=== PATIENT | male | born 1935 | race Caucasian/White ===

== ENCOUNTER 2016-07-21 10:39 | Outpatient (CLI) | payer MEDICARE, BC ==
[~2016-07-21] VITALS: Ht 188 cm; Wt 99.1 kg
--- NOTE | ~2016-07-21 | HEMODYNAMI ---
PATIENT:REESE HARRIS MEDICAL RECORD: [id number] : 37 LOCATION:DTeeCAT ADMISSION DATE: 07/21/16 Generatedon:07/21/201614:24 Patient name: REESE HARRIS Patient #: [id number] SSN: DO B: 1935 Date of study: 07/21/2016 Page: Of Hemodynamic Procedure Report Patient Data Patient Demographics Procedure consent was obtained First Name: REESE Gender: Male Last Name: STEVEN : 1935 Patient #: [id number] Age: 81 year(s) Race: Unknown Additional ID: [id number] Contact details Address: [address] [place] [address] State: [place] City: [place] Zip code: [address] Past Medical History Allergies: No known allergies Admission Admission Data Admission Date: 07/21/2016 Admission Time: 10:39 Insurance Payor: Medicare, Private health insurance Height (in.): 74 BSA: 2.25 (m2) Height (cm.): 187.96 BMI: 27.99 (kg/m2) Weight (lbs.): 218 Weight (kg.): 98.88 Lab Results Lab Result Date: 07/21/2016 Lab Result Time: 11:17 Biochemistry Name Units Result Min Max BUN mg/dl 11 --(-*--)-- 7 18 Creatinine mg/dl 1 --(--*-)-- 0.6 1.3 CBC Name Units Result Min Max Hematocrit % 32.1 *-(----)-- 42 54 Hemoglobin g/dl 10.6 *-(----)-- 13.5 17.5 Procedure Procedure Types Cath Procedure Diagnostic Procedure [facility] w/Coronaries Miscellaneous Procedures Moderate Sedation up to 45 minutes Peripheral Cath Diagnostic Procedure Cath Peripheral Chgnn-Fcgiipn-Jfd-Off Procedure Description Procedure Date Procedure Date: 07/21/2016 Procedure Start Time: 14:00 Procedure End Time: 14:23 Procedure Staff Name Function Blaine Cohn MD Performing Physician Dipesh Valencia RT Scrub Glendy Engle RN Nurse Anthony Lanza RT Monitor Procedure Data Cath Procedure Fluoroscopy Diagnostic fluoroscopy Total fluoroscopy Time: 4.7 time: 4.7 min min Diagnostic fluoroscopy Total fluoroscopy dose: dose: 1008 mGy 1008 mGy Contrast Material Contrast Material Type Amount (ml) Isovue 300 182 Entry Location Entry Primary Successful Side Size Upsize Upsize Entry Closure Succes sful Closure Location (Fr) 1 (Fr) 2 (Fr) Remarks Device Remarks Femoral Right 5 Fr Exoseal artery Estimated blood loss: 5 ml Diagnostic catheters Device Type Used For End Catheter Placement Cordis 5Fr JL 4.0 Procedure Catheter (MP) Diagnostic Infinity 5Fr Procedure AR 1 MOD catheter Diagnostic Infinity 5Fr Procedure IM catheter Cordis 5Fr Pigtail Procedure Catheter (MP) Procedure Complications No complications Procedure Medications Medication Administration Route Dosage Oxygen NC 2 l/min Heparin Flush Bag added to field 2 bags (1000units/500ml NS) Lidocaine 2% added to field 20 Versed I.V. 1 mg Fentanyl I.V. 50 mcg Versed I.V. 1 mg Fentanyl I.V. 50 mcg Versed I.V. 1 mg Fentanyl I.V. 50 mcg Versed I.V. 1 mg Fentanyl I.V. 50 mcg Hemodynamics Rest BSA: 2.25 (m2) HGB: 10.6 (g/dl) O2 Consumption: Estimated: 258.9 (ml/min) O2 Con sumption indexed: Estimated:115.07 (ml/min/m) Heart Rate: 72 (bpm) Pressure Samples Time Site Value (mmHg) Purpose Heart Use Rate(bpm) 14:14 LV 124/0,18 Snapshot 70 14:14 LV 94/-51,-18 Snapshot 71 14:15 AO 133/66(94) Pullback 73 14:15 LV 132/3,20 Pullback 73 Gradients Valve Time Site 1 Site 2 Mean SEP/DFP Peak To Heart Use (mmHg) (sec/min) Peak Rate (mmHg) (bpm) Aortic 14:15 LV AO 0 5 0 73 132/3,20 133/66(94) Calculations Valve P-P Mean Valve Index Valve Source Name Gradient Area Flow (cm2) Aortic 0 0 0 0 Snapshots Pre Cath Intra NCS Post Cath Vital Signs Time Heart Resp SPO2 NIBP (mmHg) Rhythm Pain Sedation Rate (ipm) (%) Status Level (bpm) 13:41:58 72 15 100 167/96(141) NSR 0 (11) 10(A) , No pain 13:46:14 62 28 100 169/87(132) NSR 0 (11) 10(A) , No pain 13:50:34 64 13 98 138/83(122) NSR 0 (11) 10(A) , No pain 13:54:48 64 16 96 132/79(109) NSR 0 (11) 10(A) , No pain 13:59:00 64 16 96 130/74(102) NSR 0 (11) 10(A) , No pain 14:03:12 66 21 97 126/77(109) NSR 0 (11) 10(A) , No pain 14:07:36 74 16 96 121/36(104) NSR 0 (11) 10(A) , No pain 14:11:46 72 15 97 129/78(101) NSR 0 (11) 10(A) , No pain 14:16:00 73 17 96 126/71(106) NSR 0 (11) 10(A) , No pain 14:20:12 70 22 96 123/73(104) NSR 0 (11) 10(A) , No pain Medications Time Medication Route Dose Verified Delivered Reason Notes Effec tiveness by by 13:42:40 Oxygen NC 2 Blaine Glendy Per l/min Lalit Engle RN physician 13:42:48 Heparin Flush added 2 Blaine Blaine used for Bag to bags Lalit Cohn MD procedure (1000units/500ml field NS) 13:43:00 Lidocaine 2% added 20ml Blaine Blaine used for to vial Lalit Cohn MD procedure field 13:49:57 Versed I.V. 1 mg Blaine Glendy for Lalit Engle RN sedation 13:50:02 Fentanyl I.V. 50 Blaine Glendy for mcg Lalit Engle RN sedation 13:53:06 Versed I.V. 1 mg Blaine Glendy for Lalit Engle RN sedation 13:53:08 Fentanyl I.V. 50 Blaine Glendy for mcg Lalit Engle RN sedation 13:57:15 Versed I.V. 1 mg Blaine Glendy for Cohn MD [place] RN sedation 13:57:18 Fentanyl I.V. 50 Blaine Glendy for mcg Lalit Engle RN sedation 14:02:01 Versed I.V. 1 mg Blaine Glendy for Lalit Engle RN sedation 14:02:11 Fentanyl I.V. 50 Blaine Glendy for mcg Lalit Engle RN sedation Procedure Log Time Note 13:25:37 ACC Patient presents with Stable Angina CCS Anginal Class 2--Slight limitation of ordinary activity. 13:25:39 Diagnostic Cath status Elective 13:25:41 Dipesh Valencia RT(R) sent for patient. Start room use. 13:25:49 Time tracking: Regular hours 13:25:54 Plan of Care:Hemodynamics will remain stable., Cardiac rhythm will remain stable., Comfort level will be maintained., Respiratory function will remain adequate., Patient/ family verbilizes understanding of procedure., Procedure tolerated without complication., Recovers from procedure without complications.. 13:37:13 H&P Date Dictated: 07/20/2016 Within 30 days and on chart., H&P Addendum completed by physician on day of procedure. (MUST COMPLETE FOR ALL OUTPATIENTS). 13:37:16 Pre-procedure instructions explained to patient. 13:37:18 Family in waiting room. 13:37:20 Patient NPO since Midnight. 13:38:06 Patient allergic to No known allergies 13:38:18 Patient arrived from Outpatients to CCL 2. Patient remains on bed/stretcher for procedure. 13:38:19 Warm blankets applied, and connie hugger turned on for patient comfort. 13:38:20 Correct patient and procedure confirmed by team. 13:38:22 Signed procedure consent form obtained from patient. 13:38:24 ECG and BP/O2 sat monitors applied to patient. 13:39:03 Snore? Yes 13:39:04 Sleep apnea? No 13:39:20 Airway obstruction? No ? 13:39:29 Dentures? Yes tight 13:39:35 Is patient on blood thinner?No 13:39:39 Patient diabetic? No. 13:39:44 Patient pain scale 0/10 ?. 13:39:54 IV patent on arrival in left forearm with 0.9% NaCl at [facility]. 13:40:43 Physician paged 13:40:47 Vital chart was started 13:41:47 Baseline sample Acquired. 13:41:52 Rhythm: sinus rhythm 13:41:55 Full Disclosure recording started 13:42:40 Oxygen 2 l/min NC was given by Glendy Engle RN; Per physician; 13:42:48 Heparin Flush Bag (1000units/500ml NS) 2 bags added to field was given by Blaine Cohn MD; used for procedure; 13:43:00 Lidocaine 2% 20ml vial added to field was given by Blaine Cohn MD; used for procedure; 13:45:01 Baseline sample Acquired. 13:47:11 Lab Result : BUN 11 mg/dl 13:47:11 Lab Result : Creatinine 1 mg/dl 13:47:11 Lab Result : Hemoglobin 10.6 g/dl 13:47:11 Lab Result : Hematocrit 32.1 % 13:47:15 Lab results completed and on chart. 13:47:17 Bilateral groins area was prepped with chlora-prep and draped in sterile fashion 13:47:19 Alarms reviewed by R. N. 13:47:20 Sharps counted by scrub and verified by R.N. 13:47:22 Use device set Femoral Dx 13:47:27 Tegaderm 4 x 4 opened to sterile field. 13:47:27 Acist Manifold opened to sterile field. 13:47:28 Acist Hand Control opened to sterile field. 13:47:29 Acist Syringe opened to sterile field. 13:47:30 Bag Decanter opened to sterile field. 13:47:30 Medline Cath Pack opened to sterile field. 13:47:31 Terumo 5Fr [place] Sheath opened to sterile field. 13:47:31 St Fracnk 260cm J .035 wire opened to sterile field. 13:47:33 Diagnostic Infinity 5Fr Multipack catheter opened to sterile field. 13:47:40 --------ALL STOP TIME OUT------ 13:47:40 Final Timeout: patient, procedure, and site verified with staff and physician. All members of the team are in agreement. 13:47:42 Bilateral groins site verified by team. 13:47:44 Physical assessment completed. ASA score P 2 - A patient with mild systemic disease as per Blaine Cohn MD. 13:47:47 Sedation plan: IV Moderate Sedation Versed, Fentanyl 13:49:57 Versed 1 mg I.V. was given by Glendy Engle RN; for sedation; 13:50:02 Fentanyl 50 mcg I.V. was given by Glendy Engle RN; for sedation; 13:51:43 Patient Height : 187.96 inches 13:51:49 Patient Weight : 98.88 lbs 13:52:08 Insurance Payor : Private health insurance, Medicare 13:53:06 Versed 1 mg I.V. was given by Glendy Engle RN; for sedation; 13:53:08 Fentanyl 50 mcg I.V. was given by Glendy Engle RN; for sedation; 13:55:49 Zero performed for pressure channel P1 13:57:15 Versed 1 mg I.V. was given by Glendy Engle RN; for sedation; 13:57:18 Fentanyl 50 mcg I.V. was given by Glendy Engle RN; for sedation; 14:00:15 Procedure started. 14:00:22 Local anesthetic to right femoral artery with Lidocaine 2% by Blaine Cohn MD.INITIAL ACCESS ONLY 14:02:01 Versed 1 mg I.V. was given by Glendy Engle RN; for sedation; 14:02:11 Fentanyl 50 mcg I.V. was given by Glendy Engle RN; for sedation; 14:03:07 A 5 Fr sheath was inserted into the Right Femoral artery 14:04:22 A Cordis 5Fr JL 4.0 Catheter (MP) was advanced over the wire and used for Procedure. 14:04:44 LCA angiography performed. 14:05:17 Catheter removed. 14:06:20 A Diagnostic Infinity 5Fr AR 1 MOD catheter was advanced over the wire and used for Procedure. 14:08:01 RCA angiography performed. 14:09:15 Catheter removed. 14:09:26 A Diagnostic Infinity 5Fr IM catheter was advanced over the wire and used for Procedure. 14:10:26 RUTH to LAD angiography performed. 14:11:21 [facility] 260CM glide wire opened to sterile field. 14:12:33 Catheter removed. 14:12:43 A Cordis 5Fr Pigtail Catheter (MP) was advanced over the wire and used for Procedure. 14:14:41 LV gram done using HUSAIN 14:14:43 Injector settings: Ml/sec: 10, Volume: 20, 14:14:48 EF : 50 % 14:15:23 Abdominal angiogram w/ runoff was performed. 14:16:38 Right leg runoff performed. 14:16:45 Left leg runoff performed. 14:17:32 Catheter removed. 14:19:02 Sheath removed intact; hemostasis achieved with Exoseal to the Right Femoral artery. 14:19:04 Procedure ended.(Physican Out) 14:19:19 Fluoroscopy time 04.70 minutes. 14:19:24 Fluoroscopy dose: 1008 mGy 14:19:24 Flurop Dose total: 1008 14:19:51 Contrast amount:Isovue 300 182ml. 14:21:28 Insertion/operative site no bleeding no hematoma. 14:21:32 Post-op/insertion site Right Femoral artery dressed using a 4 x 4 and Tegaderm. 14:21:40 Post right femoral artery:stable, soft, clean and dry 14:22:12 Post Procedure Pulses reassessed and unchanged 14:22:15 Post-procedure physical assessment completed. ASA score P 2 - A patient with mild systemic disease as per Blaine Cohn MD. 14:22:18 Post procedure rhythm: unchanged. 14:22:20 Estimated blood loss: 5 ml 14:22:22 Post procedure instruction explained to patient.Patient verbalizes understanding. 14:22:22 Patient needs reinforcement of post procedure teaching. 14:23:18 Procedure type changed to Cath procedure, Diagnostic procedure, LHC, LHC w/Coronaries, Miscellaneous Procedures, Moderate Sedation up to 45 minutes, Peripheral Cath Diagnostic Procedure, Cath Peripheral, Qkjep-Dvfikfs-Rlu-Off 14:23:41 Procedure and supply charges have been captured, reviewed, submitted and are correct. 14:23:43 Procedure Complication : No complications 14:23:46 Vital chart was stopped 14:23:47 See physician's report for complete and final results. 14:23:48 Report given to Pre/Post Procedure Room. 14:23:51 Patient transfered to Pre/Post Procedure Room with Stretcher. 14:23:53 Procedure ended. 14:23:53 Full Disclosure recording stopped 14:23:59 End room use (Document Last) Device Usage Item Name Manufacture Quantity Catalog Hospital Part Current Minimal Lo t# / Number Charge Number Stock Stock Serial# Code Tegaderm 4 1 1626 [id number] [id number] [id number] 5 x 4 Acist Acist 1 74890 025239 978124 909456 5 Manifold [employer] Inc Acist Hand Acist 1 00107 407942 186985 611552 5 Control [employer] Inc Acist Acist 1 17175 929873 057134 538944 20 Syringe [employer] Inc Bag Microtek 1 2002S 582588 85899 244419 5 [employer] Medline Cardinal 1 [id number] 331923 41282 215371 5 Cath Pack Health Terumo 5Fr Terumo 1 [id number] 617550 413487 057335 [address] [facility] Franck 1 485280 168841 185691 173416 30 260cm J .035 wire Diagnostic Cardinal 1 II3823 409315 06075 120091 30 Infinity Health 5Fr Multipack catheter Cordis 5Fr Cardinal 1 633356 5 JL 4.0 Health Catheter (MP) Diagnostic Cardinal 1 [id number] 157828 085350 389874 15 Infinity Health 5Fr AR 1 MOD catheter Diagnostic Cardinal 1 [id number] 844709 550076 483453 5 Infinity Health 5Fr IM catheter Cook [facility] 1 [id number] 595363 020399 [address] FIRM 260CM glide wire Cordis 5Fr Cardinal 1 [id number] 5 Pigtail Health Catheter (MP) Signature Audit [place] Stage Time Signature Unsigned Intra-Procedure 07/21/2016 Anthony Lanza 2:24:15 PM RT(R) Signatures Monitor : Anthony Lanza RT Signature : Date : Time : [facility] [address] [place] [address]
[2016-07-21] MEDS ORDERED: ADVIL200 MG PO (10:59)
[2016-07-21] MEDS ORDERED: TENORMIN25 MG PO (10:59)
[2016-07-21] MEDS ORDERED: BAYER CHEWABLE81 MG PO (11:00)
[2016-07-21] MEDS ORDERED: MEGACE 20 MG TA20 MG PO (11:01)
[2016-07-21] MEDS ORDERED: LIPITOR80 MG PO (11:03)
[2016-07-21] MEDS ORDERED: NEURONTIN 300300 MG PO (11:03)
[2016-07-21 11:04] VITALS: BP 153/84; Ht 188 cm; Wt 99.1 kg
[2016-07-21 11:33] LABS: BASOPHILS 0.4 % (0.0-2.0); EOSINOPHILS 2.7 % (0-7); HEMATOCRIT 32.1 % (42.0-54.0); HEMOGLOBIN 10.6 g/dL (13.5-17.5); IMMATURE GRANULOCYTES 0.4 % (0-5); LYMPHOCYTES 22.1 % (15-50); MCH 30.6 pg (26.0-34.0); MCV 92.8 fL (80.0-100.0); MEAN PLATELET VOLUME 10.9 fL (7.4-10.4); MONOCYTES 7.2 % (2-11); NEUTROPHILS 67.2 % (40-80); PLATELET COUNT 165 10x3/uL (130-400); RBC 3.46 10x6/uL (4.20-6.10); WBC 5.1 10x3/uL (4.8-10.8)
[2016-07-21 11:46] LABS: CALC OSMOLALITY 281 mosm/kg (275-300); CALCIUM 8.5 mg/dL (8.5-10.1); CARBON DIOXIDE 24.5 mmol/L (21.0-32.0); CHLORIDE - SERUM 106 mmol/L (98-107); GLUCOSE 94 mg/dL (74-106); POTASSIUM - SERUM 4.1 mmol/L (3.5-5.1); SODIUM 142 mmol/L (136-145); UREA NITROGEN 11 mg/dL (7-18); eGFR NON AFRICAN AMERICAN 76 mL/min (90-120)
--- NOTE | 2016-07-21 16:44 | NUR ---
1555 LYING FLAT, NC 2L IN PLACE WHILE SLEEPING. VITALS ALL WNL. R GROIN 5F EXOSEAL C/D/I WITH NO HEMATOMA OR BLEEDING. FAMILY AT BEDSIDE. 1630 R GROIN REMAINS C/D/I WITH NO HEMATOMA OR BLEEDING. NC REMOVED. ALL VITALS WNL. PULSES PALP X 4. NO C/O CHST PAIN. 1645 UP TO BEDSIDE TO VOID USING URINAL. VOIDED 300CC YELLOW URINE.
--- NOTE | 2016-07-21 16:48 | NUR ---
PIV REMOVED FROM LEFT HAND WITH BANDAID APPLIED.
--- NOTE | 2016-07-21 17:12 | NUR ---
1700-WRITTEN AND VERBAL INSTRUCTIONS GIVEN AND UNDERSTOOD. D'C HOME WITH FRIEND VIA PRIVATE CAR. DENIES TYREE NEEDS
--- NOTE | 2016-08-05 08:17 | OP ---
PATIENT NAME: REESE HARRIS MEDICAL RECORD: [id number] :37 LOCATION:D.CAT ADMISSION DATE: SURGEON: YAYA SIMON M.D. DATE OF OPERATION: 07/21/2016 PROCEDURES PERFORMED: 1. Selective coronary angiography. 2. Left heart catheterization with ventriculogram. 3. Left internal mammary injection. 4. Aortofemoral runoff INDICATION: An 81-year-old gentleman presents with recurrent angina. He has been having lifestyle limiting claudication as well. His recent stress test revealed ischemia. EQUIPMENT USED: A 5-Cypriot JL4, Adebayo right, internal mammary catheter, pigtail catheter. TECHNIQUE: A 5-Cypriot sheath was inserted in a retrograde fashion in the right common femoral artery. Next, selective coronary angiography was performed in standard 5-Cypriot JL4 and Adebayo right. Left internal mammary was selected with internal mammary catheter. Left heart catheterization performed using pigtail catheter. Next, the pigtail catheter was pulled down to the level of T12. Power injection was performed to visualize the distal aorta. Next, the cath was pulled down to the level of bifurcation. A power injection then performed to visualize the left and right lower extremities. CORONARY ANATOMY: 1. Left main: Left main trunk is moderate in caliber. It gives rise to the LAD and circumflex. It has mild irregularities. 2. LAD: This vessel has 100% occluded after first diagonal branch. The first diagonal branch has mild irregularities, but nothing worse than 20%. 3. Circumflex: This vessel is moderate in caliber. It supplies the lateral branch in distal segment. This vessel has mild irregularities, but nothing worse than 20%. 4. Right coronary: This vessel is quite large and dominant. It supplies the PDA and posterolateral branch in distal segment. This vessel has mild irregularities, but nothing worse than 30%. 5. Left internal mammary artery to LAD: This graft is widely patent throughout its course. Beyond anastomosis, the vessel have good caliber and has no significant obstruction. 6. Left ventricle: Left ventricle is normal in size. Estimated ejection fraction is lower limits of normal around 50%. AORTOFEMORAL RUNOFF: The distal aorta is of good caliber. Each kidney receives a single arterial supply. There is no evidence of renal artery stenosis. The distal aorta demonstrates no obstruction. Right common iliac artery is large in caliber and widely patent. The right common femoral artery is large in caliber and widely patent. Right superficial artery is calcified, has mild irregularities, but nothing worse than 20%. Right popliteal is large in caliber. Again, it has mild irregularities, but nothing worse than 20%. Below the knee, there appears to be 3-vessel runoff. Left common occurs large in caliber and widely patent. Left common femoral OPERATIVE REPORT [id number] REESE HARRIS artery is large in caliber and widely patent. Left superficial artery is mildly calcified, but again has mild irregularities, but nothing worse than 20%. Left popliteal artery is large in caliber and has mild irregularities, but nothing worse than 30%. It appears to have 2-3-vessel runoff below the knee, but somewhat ____ artificial knee. IMPRESSION: 1. A patent bypass graft to the LAD. Main 2 coronary arteries are not grafted but have no obstruction. 2. Aortofemoral runoff reveals mild disease, but no significant stenosis. RECOMMENDATIONS: I Suspect his pain in his legs may be from his lower back. He does not have any evidence of any significant peripheral vascular disease. I suspect his stress test may be a false positive as all areas appear to be revascularized. TRANSINT:[id number] Voice Confirmation ID: [id number] DOCUMENT ID: [id number] YAYA SIMON M.D. at 0817 CC: [id number] DICTATION DATE: 07/21/16 1429 FAMILY SERVICES ASSISTANT: 07/21/16 2232 DEP CLI 07/21/16 [address] [place] [address]
== END 2016-07-21 17:05 | disposition home or self-care (01) ==
LOC: D.CATH 10:39
PROVIDERS: Internal Medicine Cardiovascular Disease
DX: R94.39 Abnormal result of other cardiovascular function study (principal); M79.605 Pain in left leg; M79.604 Pain in right leg; I25.10 Atherosclerotic heart disease of native coronary artery without angina pectoris; Z95.1 Presence of aortocoronary bypass graft

== ENCOUNTER → 2016-08-27 09:19 | Outpatient (CLI) | payer MEDICARE, BC ==
[2016-07-21 11:04] VITALS: BMI 28.0
[~2016-08-27 09:19] MED LIST: ADVIL200 MG PO; BAYER CHEWABLE81 MG PO; LIPITOR80 MG PO; MEGACE 20 MG TA20 MG PO; NEURONTIN 300300 MG PO; TENORMIN25 MG PO
== END | disposition home or self-care (01) ==
LOC: D.CT 09:19
DX: M79.606 Pain in leg, unspecified (principal)

== ENCOUNTER → 2017-08-19 09:11 | Outpatient (CLI) | payer MEDICARE, BC ==
[2016-07-21 11:04] VITALS: BMI 28.0
[~2017-08-19 09:11] MED LIST changes: +CARAFATE1 G/10 ML PO; +COLACE100 MG PO; +FLAGYL500 MG PO; +FUROSEMIDE20 MG PO; +HYDROCODON-ACE1 EAC7 PO; +KLOR-CON 1010 MEQ PO; +MIRALAX17 GM PO; +PROTONIX40 MG PO
== END | disposition home or self-care (01) ==
LOC: D.RAD 09:11
DX: K59.00 Constipation, unspecified (principal)

== ENCOUNTER 2017-08-24 15:48 | Inpatient (IN) | payer MEDICARE, BC ==
[~2017-08-24] VITALS: Ht 188 cm; Wt 110.0 kg
--- NOTE | ~2017-08-24 | HP ---
PATIENT: REESE HARRIS MEDICAL RECORD: [id number] ACCOUNT: [id number] LOCATION:[address] : 37 ADMISSION DATE: 08/24/17 HISTORY AND PHYSICAL EXAMINATION DIAGNOSES: 1. Unstable angina. 2. Coronary artery disease. 3. Previous coronary bypass graft surgery 2 vessels in 1985. 4. Hypertension. 5. Hyperlipidemia. HISTORY OF PRESENT ILLNESS: Mr. Harris has a distant history of coronary artery disease, bypass surgery in 1985. He underwent cardiac catheterization last year and he was told he had patent vessels. No new blockages. He has had chest pain all day today. His EKG has a right bundle-branch block, but T-wave inversions anteriorly. He continues to have the chest pain. REVIEW OF SYSTEMS: The patient reports easy bruising but reports no swollen glands. The patient reports no fever, no night sweats, no significant weight gain, no significant weight loss. No significant exercise tolerance. The patient reports no dry eyes, no irritation, no vision change. Patient reports no difficulty hearing and no ear pain. Patient reports no frequent nose bleeds or nose and sinus problems. Patient reports on arm pain on exertion. No shortness of breath while lying down. No history of heart murmur. Patient reports no cough, no wheezing or coughing up blood. Patient reports no abdominal pain, no vomiting. Normal appetite. No diarrhea and not vomiting blood. No nausea and no constipation. Patient reports no incontinence. No difficulty urinating. No hematuria. No increased frequency. Patient reports no muscle aches. No weakness, no arthralgias, no back pain. No swelling of the extremities. Patient reports no abnormal mole, no jaundice, no rashes. Reports no loss of consciousness. No weakness and no numbness. No seizures, dizziness, or headaches. The patient reports no depression, no sleep disturbance, feeling safe in a relationship and no alcohol abuse. Patient reports on fatigue. Reports no runny nose or sinus pressure. No itching, no hives, and no frequent sneezing. PHYSICAL EXAMINATION: GENERAL APPEARANCE: Well-nourished, well-developed, appears stated age. Level of distress, comfortable. PSYCHIATRIC: Mental status, alert, normal affect. Orientation, oriented to time, place and person. EYES: Lids and conjunctiva, noninjected. No discharge, no pallor. ENT: Lips, teeth, gums, normal dentition. Oropharynx, no cyanosis, no pallor. NECK: Carotid arteries, bilateral normal upstroke, no bruits, no thrills. JUGULAR VEINS: No jugular venous pressure or distention. CERVICAL LYMPH NODES: Nontender, nonenlarged. THYROID: Not enlarged. Nontender. No nodules. LUNGS: Respiratory effort, unlabored. CHEST: Normal curvature. No thoracic deformity. No chest wall tenderness. Percussion, resonant. Auscultation, clear. No wheezes, no rales, no rhonchi. CARDIOVASCULAR: Precordial exam, nondisplaced. No heaves or pericardial thrills. Rate and rhythm, regular. Heart sounds, normal S1, normal S2. No S3, no gallop, no rub. Systolic murmur, not heard. Diastolic murmur, not heard. EXTREMITIES: No cyanosis, no edema. Peripheral pulses, full and equal in all HISTORY AND PHYSICAL [id number] REESE HARRIS extremities, except as noted. No bruits appreciated. ABDOMEN: Soft, nondistended. Normal aorta. No bruit. Nontender. No masses. Liver, nontender, no hepatomegaly. Spleen, nontender, no splenomegaly. MUSCULOSKELETAL: No joint tenderness. No joint swelling. No erythema. NEUROLOGICAL: Normal gait, normal strength, normal tone. SKIN: Warm and dry. OVERALL IMPRESSION: Chest pain compatible with angina, unstable fashion, most likely he has hemodynamically significant coronary artery disease. We will proceed with coronary angiography. Further care depends upon the findings of the angiography. TRANSINT:[id number] Voice Confirmation ID: [id number] DOCUMENT ID: [id number] ROBINA FARAH MD at 1056 CC: [id number] DICTATION DATE: 08/24/17 1642 DOOR ASSEMBLER: 08/24/17 1825 ADM IN [id number] [place] [address]
[~2017-08-24 15:48] MED LIST changes: -CARAFATE1 G/10 ML PO; -COLACE100 MG PO; -FLAGYL500 MG PO; -FUROSEMIDE20 MG PO; -HYDROCODON-ACE1 EAC7 PO; -KLOR-CON 1010 MEQ PO; -MIRALAX17 GM PO; -PROTONIX40 MG PO
[2017-08-24 16:29] LABS: MCH 29.4 pg (26.0-34.0); MCHC 31.6 g/dL (31.0-37.0); WBC 17.2 10x3/uL (4.8-10.8)
[2017-08-24 16:45] LABS: ALBUMIN 3.3 g/dL (3.4-5.0); ALKALINE PHOSPHATASE 44 U/L (46-116); ALT (SGPT) 17 U/L (10-68); BILIRUBIN - TOTAL 0.29 mg/dL (0.2-1.3); CALC OSMOLALITY 272 mosm/kg (275-300); CALCIUM 8.5 mg/dL (8.5-10.1); CARBON DIOXIDE 25.4 mmol/L (21.0-32.0); CHLORIDE - SERUM 100 mmol/L (98-107); GLUCOSE 99 mg/dL (74-106); PROTEIN - SERUM 7.7 g/dL (6.4-8.2); SODIUM 136 mmol/L (136-145); UREA NITROGEN 16 mg/dL (7-18); eGFR NON AFRICAN AMERICAN 76 mL/min (90-120)
[2017-08-24 16:56] LABS: CHOL - HDL RATIO 4.6 ratio (2.3-4.9); CHOLESTEROL, TOTAL 132 mg/dL (0-200); CKMB 1.6 U/L (0.0-3.6); CREATINE KINASE 105 UL (21-232); HDL CHOLESTEROL 29 mg/dL (32-96); LDL CHOLESTEROL 81 mg/dL (0-100); LDL-HDL RATIO 2.8 ratio (1.5-3.5); TRIGLYCERIDE 110 mg/dL (30-200); TROPONIN-I 0.034 ng/mL (0.000-0.060)
[2017-08-24 17:34] LABS: RBC 1.87 10x6/uL (4.20-6.10)
[2017-08-24 17:35] LABS: HEMATOCRIT 17.4 % (42.0-54.0); HEMOGLOBIN 5.5 g/dL (13.5-17.5); PLATELET COUNT 13 10x3/uL (130-400)
[2017-08-24 17:54] LABS: APTT 34.3 SECONDS (22.8-39.4); INR 1.19 (0.85-1.17); PROTIME 14.6 SECONDS (11.6-15.0)
[2017-08-24 18:40] LABS: LYMPHOCYTES 93 % (15-50); MONOCYTES 5 % (2-11); NEUTROPHILS 2 % (40-80); PLATELET ESTIMATE DECREASED
[2017-08-24 19:00] VITALS: BP 142/74
[2017-08-24 19:43] LABS: % SATURATION 53 % (15-55); IRON 115 ug/dl (35-150); TOTAL IRON BIND CAPACITY 216 ug/dl (260-445); UNSAT IRON BIND CAPACITY 101 ug/dl (150-375)
[2017-08-24 23:39] LABS: APPEARANCE CLEAR (CLEAR); BILIRUBIN NEGATIVE (NEGATIVE); COLOR YELLOW (YELLOW); GLUCOSE NEGATIVE (NEGATIVE); KETONE NEGATIVE (NEGATIVE); NITRITE NEGATIVE (NEGATIVE); PROTEIN NEGATIVE (NEGATIVE); UROBILINOGEN NORMAL (NORMAL)
[2017-08-24 23:40] LABS: WHITE CELLS - URINE 0-5 /hpf (0-5)
[2017-08-24 23:41] LABS: BACTERIA FEW /hpf (NONE SEEN); EPITHELIAL CELLS 0-5 /hpf (0-5); RED CELLS - URINE 0-5 /hpf (0-5)
[2017-08-25] VITALS: BP 122/69
[2017-08-25] MEDS ORDERED: FUROSEMIDE20 MG PO (00:28)
[2017-08-25] MEDS ORDERED: KLOR-CON 1010 MEQ PO (00:29)
[2017-08-25 01:35] LABS: CKMB 0.9 U/L (0.0-3.6); CREATINE KINASE 82 UL (21-232)
[2017-08-25 04:00] VITALS: BP 129/72
[2017-08-25 08:04] VITALS: BP 132/74
[2017-08-25 08:17] LABS: CALC OSMOLALITY 269 mosm/kg (275-300); CARBON DIOXIDE 23.5 mmol/L (21.0-32.0); CHLORIDE - SERUM 98 mmol/L (98-107); CREATINE KINASE 132 UL (21-232); CREATININE - SERUM 0.8 mg/dL (0.6-1.3); FERRITIN 828 ng/mL (3-244); GLUCOSE 107 mg/dL (74-106); POTASSIUM - SERUM 4.4 mmol/L (3.5-5.1); SODIUM 135 mmol/L (136-145); TROPONIN-I 0.035 ng/mL (0.000-0.060); UREA NITROGEN 13 mg/dL (7-18); eGFR NON AFRICAN AMERICAN > 90 mL/min (90-120)
[2017-08-25 08:19] LABS: HEMATOCRIT 26.5 % (42.0-54.0); HEMOGLOBIN 8.6 g/dL (13.5-17.5); MCH 28.9 pg (26.0-34.0); MCHC 32.5 g/dL (31.0-37.0); MCV 88.9 fL (80.0-100.0); RBC 2.98 10x6/uL (4.20-6.10); WBC 13.3 10x3/uL (4.8-10.8)
[2017-08-25 08:21] LABS: PLATELET COUNT 31 10x3/uL (130-400)
[2017-08-25 08:28] LABS: LDH 792 U/L (85-227)
[2017-08-25 09:18] LABS: ANISOCYTOSIS 1+; EOSINOPHILS 1 % (0-7); LYMPHOCYTES 53 % (15-50); MONOCYTES 21 % (2-11); NEUTROPHILS 3 % (40-80); PLATELET ESTIMATE DECREASED; ROULEAUX OCC; VACUOLES 1+
[2017-08-25 12:16] VITALS: BMI 28.2
[2017-08-25 12:57] LABS: CKMB 0.9 U/L (0.0-3.6); CREATINE KINASE 75 UL (21-232); TROPONIN-I 0.042 ng/mL (0.000-0.060)
[2017-08-25 15:06] VITALS: BP 136/66
[2017-08-25 16:22] VITALS: Ht 188 cm; Wt 110.0 kg
[2017-08-25 17:18] LABS: INR 1.19 (0.85-1.17); PROTIME 14.7 SECONDS (11.6-15.0)
[2017-08-25 17:33] LABS: D-DIMER-QUANTITATIVE 6.81 ug/mLFEU (0.20-0.54)
[2017-08-25 20:00] VITALS: BP 124/61
[2017-08-26] VITALS (14 sets, daily range): BP systolic 114–142; BP diastolic 57–97
[2017-08-26 06:11] LABS: HEMATOCRIT 26.8 % (42.0-54.0); HEMOGLOBIN 8.6 g/dL (13.5-17.5); MCH 28.8 pg (26.0-34.0); MCHC 32.1 g/dL (31.0-37.0); MCV 89.6 fL (80.0-100.0); RBC 2.99 10x6/uL (4.20-6.10); RDW 20.5 % (11.5-14.5); WBC 14.6 10x3/uL (4.8-10.8)
[2017-08-26 06:13] LABS: PLATELET COUNT 21 10x3/uL (130-400)
[2017-08-26 07:03] LABS: ALBUMIN 2.9 g/dL (3.4-5.0); ALKALINE PHOSPHATASE 44 U/L (46-116); ALT (SGPT) 16 U/L (10-68); BILIRUBIN - TOTAL 0.25 mg/dL (0.2-1.3); CALC OSMOLALITY 274 mosm/kg (275-300); CALCIUM 8.2 mg/dL (8.5-10.1); CARBON DIOXIDE 26.2 mmol/L (21.0-32.0); CHLORIDE - SERUM 99 mmol/L (98-107); GLUCOSE 115 mg/dL (74-106); PROTEIN - SERUM 7.2 g/dL (6.4-8.2); SODIUM 137 mmol/L (136-145); UREA NITROGEN 12 mg/dL (7-18); eGFR NON AFRICAN AMERICAN 76 mL/min (90-120)
[2017-08-26 07:05] LABS: POTASSIUM - SERUM 3.5 mmol/L (3.5-5.1)
[2017-08-26 07:29] LABS: ANISOCYTOSIS OCC; LYMPHOCYTES 58 % (15-50); MONOCYTES 14 % (2-11); NEUTROPHILS 4 % (40-80); PLATELET ESTIMATE DECREASED; ROULEAUX OCC; VACUOLES OCC
[2017-08-26 09:18] LABS: FOLATE (FOLIC ACID) - SERUM 17.2 ng/mL (>3.0)
[2017-08-27 04:00] VITALS: BP 112/61
[2017-08-27 04:47] LABS: HEMATOCRIT 24.8 % (42.0-54.0); MCH 29.1 pg (26.0-34.0); MCHC 32.3 g/dL (31.0-37.0); MCV 90.2 fL (80.0-100.0); RBC 2.75 10x6/uL (4.20-6.10); RDW 20.2 % (11.5-14.5); WBC 20.8 10x3/uL (4.8-10.8)
[2017-08-27 04:49] LABS: PLATELET COUNT 20 10x3/uL (130-400)
[2017-08-27 04:54] LABS: ALBUMIN 2.6 g/dL (3.4-5.0); ALKALINE PHOSPHATASE 39 U/L (46-116); ALT (SGPT) 16 U/L (10-68); BILIRUBIN - TOTAL 0.31 mg/dL (0.2-1.3); CALC OSMOLALITY 274 mosm/kg (275-300); CARBON DIOXIDE 26.4 mmol/L (21.0-32.0); CHLORIDE - SERUM 101 mmol/L (98-107); GLUCOSE 108 mg/dL (74-106); HELICOBACTER PYLORI IGG NEGATIVE (NEGATIVE); PROTEIN - SERUM 6.7 g/dL (6.4-8.2); SODIUM 137 mmol/L (136-145); UREA NITROGEN 13 mg/dL (7-18); eGFR NON AFRICAN AMERICAN 76 mL/min (90-120)
[2017-08-27 05:36] LABS: LYMPHOCYTES 42 % (15-50); MONOCYTES 6 % (2-11); NEUTROPHILS 7 % (40-80); PLATELET ESTIMATE DECREASED
[2017-08-27 09:35] VITALS: BP 116/67
[2017-08-27 18:42] VITALS: BP 123/51
[2017-08-27 20:00] VITALS: BP 115/60
[2017-08-28 04:00] VITALS: BP 117/63
[2017-08-28 05:19] LABS: HEMOGLOBIN 7.6 g/dL (13.5-17.5); MCH 28.8 pg (26.0-34.0); MCHC 31.7 g/dL (31.0-37.0); MCV 90.9 fL (80.0-100.0); RBC 2.64 10x6/uL (4.20-6.10); RDW 20.1 % (11.5-14.5); WBC 22.3 10x3/uL (4.8-10.8)
[2017-08-28 05:20] LABS: PLATELET COUNT 10 10x3/uL (130-400)
[2017-08-28 05:22] LABS: ALBUMIN 2.4 g/dL (3.4-5.0); ALKALINE PHOSPHATASE 37 U/L (46-116); ALT (SGPT) 18 U/L (10-68); AMYLASE - SERUM 30 U/L (25-115); CALC OSMOLALITY 274 mosm/kg (275-300); CALCIUM 7.7 mg/dL (8.5-10.1); CARBON DIOXIDE 28.1 mmol/L (21.0-32.0); CHLORIDE - SERUM 102 mmol/L (98-107); GLUCOSE 96 mg/dL (74-106); PHOSPHOROUS 2.8 mg/dL (2.5-4.9); POTASSIUM - SERUM 4.1 mmol/L (3.5-5.1); PROTEIN - SERUM 6.4 g/dL (6.4-8.2); SODIUM 137 mmol/L (136-145); UREA NITROGEN 14 mg/dL (7-18); eGFR NON AFRICAN AMERICAN 76 mL/min (90-120)
[2017-08-28 05:32] LABS: EOSINOPHILS 1 % (0-7); LYMPHOCYTES 44 % (15-50); MONOCYTES 6 % (2-11); NEUTROPHILS 5 % (40-80); PLATELET ESTIMATE DECREASED
[2017-08-28 09:35] VITALS: BP 130/74
[2017-08-28 12:26] VITALS: BP 127/60
[2017-08-28 16:57] VITALS: BP 148/76
[2017-08-28 21:06] VITALS: BP 125/67
[2017-08-29 01:14] VITALS: BP 199/53
[2017-08-29 05:05] VITALS: BP 142/72
[2017-08-29 07:15] LABS: ALBUMIN 2.6 g/dL (3.4-5.0); ALKALINE PHOSPHATASE 40 U/L (46-116); ALT (SGPT) 20 U/L (10-68); BILIRUBIN - TOTAL 0.45 mg/dL (0.2-1.3); CALC OSMOLALITY 273 mosm/kg (275-300); CALCIUM 8.1 mg/dL (8.5-10.1); CARBON DIOXIDE 25.3 mmol/L (21.0-32.0); CHLORIDE - SERUM 101 mmol/L (98-107); CREATININE - SERUM 0.9 mg/dL (0.6-1.3); GLUCOSE 101 mg/dL (74-106); POTASSIUM - SERUM 3.5 mmol/L (3.5-5.1); PROTEIN - SERUM 6.8 g/dL (6.4-8.2); SODIUM 137 mmol/L (136-145); UREA NITROGEN 13 mg/dL (7-18); eGFR NON AFRICAN AMERICAN 86 mL/min (90-120)
[2017-08-29 07:21] LABS: HEMATOCRIT 27.6 % (42.0-54.0); HEMOGLOBIN 9.1 g/dL (13.5-17.5); MCH 29.4 pg (26.0-34.0); RDW 19.1 % (11.5-14.5); WBC 29.1 10x3/uL (4.8-10.8)
[2017-08-29 07:23] LABS: MEAN PLATELET VOLUME 9.6 fL (7.4-10.4); PLATELET COUNT 35 10x3/uL (130-400)
[2017-08-29 08:05] LABS: LYMPHOCYTES 31 % (15-50); MONOCYTES 1 % (2-11); NEUTROPHILS 5 % (40-80); PLATELET ESTIMATE DECREASED
[2017-08-29 08:27] VITALS: BP 141/66
[2017-08-29 16:18] VITALS: BP 139/69
[2017-08-29 19:00] VITALS: BP 132/79
[2017-08-30 08:27] LABS: HEMATOCRIT 29.7 % (42.0-54.0); HEMOGLOBIN 9.7 g/dL (13.5-17.5); MCH 29.2 pg (26.0-34.0); MCHC 32.7 g/dL (31.0-37.0); MCV 89.5 fL (80.0-100.0); PLATELET COUNT 29 10x3/uL (130-400); RBC 3.32 10x6/uL (4.20-6.10); RDW 18.9 % (11.5-14.5); WBC 27.7 10x3/uL (4.8-10.8)
[2017-08-30 08:31] LABS: ALBUMIN 2.7 g/dL (3.4-5.0); ALKALINE PHOSPHATASE 46 U/L (46-116); ALT (SGPT) 22 U/L (10-68); CALC OSMOLALITY 269 mosm/kg (275-300); CALCIUM 8.4 mg/dL (8.5-10.1); CARBON DIOXIDE 25.4 mmol/L (21.0-32.0); CHLORIDE - SERUM 102 mmol/L (98-107); CREATININE - SERUM 0.9 mg/dL (0.6-1.3); GLUCOSE 115 mg/dL (74-106); POTASSIUM - SERUM 3.4 mmol/L (3.5-5.1); SODIUM 135 mmol/L (136-145); UREA NITROGEN 11 mg/dL (7-18); eGFR NON AFRICAN AMERICAN 86 mL/min (90-120)
[2017-08-30 09:01] LABS: LYMPHOCYTES 23 % (15-50); MONOCYTES 2 % (2-11); NEUTROPHILS 6 % (40-80); PLATELET ESTIMATE DECREASED
[2017-08-30 09:27] VITALS: BP 133/65
[2017-08-30 12:09] VITALS: BP 140/70
[2017-08-30 19:57] VITALS: BP 143/92
[2017-08-30 20:00] VITALS: BP 115/74
[2017-08-31] VITALS: BP 130/67
[2017-08-31 04:00] VITALS: BP 120/60
[2017-08-31 05:29] LABS: HEMATOCRIT 29.4 % (42.0-54.0); HEMOGLOBIN 9.4 g/dL (13.5-17.5); MCH 29.1 pg (26.0-34.0); PLATELET COUNT 19 10x3/uL (130-400); RBC 3.23 10x6/uL (4.20-6.10); RDW 18.8 % (11.5-14.5); WBC 29.5 10x3/uL (4.8-10.8)
[2017-08-31 05:41] LABS: ALBUMIN 2.5 g/dL (3.4-5.0); ALKALINE PHOSPHATASE 41 U/L (46-116); ALT (SGPT) 19 U/L (10-68); BILIRUBIN - TOTAL 0.31 mg/dL (0.2-1.3); CALC OSMOLALITY 271 mosm/kg (275-300); CALCIUM 8.1 mg/dL (8.5-10.1); CHLORIDE - SERUM 101 mmol/L (98-107); CREATININE - SERUM 0.9 mg/dL (0.6-1.3); GLUCOSE 97 mg/dL (74-106); PHOSPHOROUS 3.3 mg/dL (2.5-4.9); POTASSIUM - SERUM 3.8 mmol/L (3.5-5.1); PROTEIN - SERUM 6.6 g/dL (6.4-8.2); SODIUM 136 mmol/L (136-145); UREA NITROGEN 12 mg/dL (7-18); eGFR NON AFRICAN AMERICAN 86 mL/min (90-120)
[2017-08-31] MEDS ORDERED: FLAGYL500 MG PO (06:41)
[2017-08-31] MEDS ORDERED: PROTONIX40 MG PO (06:42)
[2017-08-31] MEDS ORDERED: CARAFATE1 G/10 ML PO (06:42)
[2017-08-31] MEDS ORDERED: COLACE100 MG PO (06:42)
[2017-08-31] MEDS ORDERED: MIRALAX17 GM PO (06:42)
[2017-08-31] MEDS ORDERED: HYDROCODON-ACE1 EAC7 PO (06:43)
[2017-08-31 06:58] LABS: EOSINOPHILS 1 % (0-7); LYMPHOCYTES 43 % (15-50); MONOCYTES 2 % (2-11); NEUTROPHILS 2 % (40-80); PLATELET ESTIMATE DECREASED; SMUDGE CELLS 1+
[2017-08-31 08:25] VITALS: BP 133/81
[2017-08-31 11:02] VITALS: BP 126/65
[2017-08-31 16:23] VITALS: BP 128/62
== END 2017-08-31 17:39 | disposition home or self-care (01) | DRG 835 ==
LOC: D.ER 15:48 → D.M2 17:42 → OBSVTIME 18:00 → D.M2 18:24 → D.SDCHOLD 08-26 14:34 → D.M2 08-26 14:34
PROVIDERS: Emergency Medicine; Family Medicine; Internal Medicine Gastroenterology; Internal Medicine Medical Oncology; Radiology Vascular & Interventional Radiology
PROC: 07DR3ZX Extraction of Iliac Bone Marrow, Percutaneous Approach, Diagnostic (ICD-10-PCS; principal; 2017-08-26 12:00)
DX: C95.00 Acute leukemia of unspecified cell type not having achieved remission (principal); D61.818 Other pancytopenia; I25.110 Atherosclerotic heart disease of native coronary artery with unstable angina pectoris; I10 Essential (primary) hypertension; E78.5 Hyperlipidemia, unspecified; D64.9 Anemia, unspecified; K21.9 Gastro-esophageal reflux disease without esophagitis; I99.8 Other disorder of circulatory system; Z95.5 Presence of coronary angioplasty implant and graft